=== PATIENT | female | born 1955 | race Caucasian/White ===

== ENCOUNTER 2020-10-07 09:58 | Outpatient (CLI) | payer OTHER ==
[~2020-10-07 09:58] MED LIST: ATIVAN0.5 M1 PO; CIPROFLOXACIN750 MG PO; CLONAZEPAM1 MG PO; DOCUSATE SODIU100 MG PO; LIPITOR40 MG PO; METHYLPRED4 MG/DOSE- PO; NEURONTIN PO; NEURONTIN600 MG PO; PERCOCET 5/3251 TAB PO; PREVACID30 MG PO; PROZAC10 MG PO; RESTORIL30 M1 PO
== END 2020-10-07 10:02 | disposition home or self-care (01) ==
LOC: RAD 09:58 → LAB 09:58
PROVIDERS: ATTEND Orthopaedic Surgery Orthopaedic Surgery of the Spine
DX: R07.89 Other chest pain (principal); D68.8 Other specified coagulation defects; D64.89 Other specified anemias; E03.8 Other specified hypothyroidism

== ENCOUNTER 2020-10-09 10:00 | Inpatient (IN) | payer OTHER ==
[~2020-10-09] VITALS: Ht 157.5 cm; Wt 57.2 kg
[2020-10-09] MEDS ORDERED: GABAPEN PO (13:56)
[2020-10-09] MEDS ORDERED: CRESTOR20 MG PO (13:57)
[2020-10-09] MEDS ORDERED: ZETIA10 MG PO (13:57)
[2020-10-09] MEDS ORDERED: PRILOS PO (13:57)
[2020-10-09] MEDS ORDERED: VITAMIN D3 PO (13:58)
[2020-10-15] MEDS ORDERED: GABAPENTIN800 M1 (07:57)
[2020-10-15] MEDS ORDERED: NAPROXEN500 MG (07:57)
[2020-10-15] MEDS ORDERED: KETOROLAC TROMET5 ML (07:58)
[2020-10-15] MEDS ORDERED: OMEPRAZOLE40 MG (07:58)
[2020-10-15] MEDS ORDERED: VITAMIN D3250 MCG (07:58)
[2020-10-15] MEDS ORDERED: OFLOXACIN5 ML (07:58)
[2020-10-15] MEDS ORDERED: COLACE100 MG PO (10:08)
[2020-10-15] MEDS ORDERED: AMOX-CLAV 875-1 EACH PO (10:08)
[2020-10-15] MEDS ORDERED: PERCOCET 5-3251 EACH PO (10:08)
[2020-10-15] MEDS ORDERED: DIAZEPAM5 MG PO (10:08)
[2020-10-15] MEDS ORDERED: NEURONTIN800 MG PO (10:08)
[2020-10-15] MEDS ORDERED: MEDROLPACK PO (10:08)
== END 2020-10-17 18:35 | DRG 520 ==
LOC: O/R 10-15 07:06 → PED 10-15 07:06 → SURH 10-15 10:00 → PED 10-15 13:18
PROVIDERS: ADMIT Orthopaedic Surgery Orthopaedic Surgery of the Spine; ATTEND Orthopaedic Surgery Orthopaedic Surgery of the Spine
PROC: 0QP005Z Removal of External Fixation Device from Lumbar Vertebra, Open Approach (ICD-10-PCS; 2020-10-15)
PROC: 0SB20ZZ Excision of Lumbar Vertebral Disc, Open Approach (ICD-10-PCS; principal; 2020-10-15 10:45)
DX: T84.84XA Pain due to internal orthopedic prosthetic devices, implants and grafts, initial encounter (principal); G89.18 Other acute postprocedural pain; M54.16 Radiculopathy, lumbar region; M48.061 Spinal stenosis, lumbar region without neurogenic claudication